=== PATIENT | female | born 1950 | race Caucasian/White ===

== ENCOUNTER 2019-11-05 16:27 | Emergency (ER) | payer MEDICARE, BC ==
[2019-11-05 18:03] LABS: APPEARANCE,URINE CLEAR; BILIRUBIN,URINE NEGATIVE (NEGATIVE); COLOR,URINE YELLOW; GLUCOSE, URINE NEGATIVE (NEGATIVE); KETONES,URINE NEGATIVE (NEGATIVE); LEUKOCYTE ESTERASE,URINE NEGATIVE (NEGATIVE); NITRITE,URINE NEGATIVE (NEGATIVE); PROTEIN,URINE 30 mg/dL (NEGATIVE); URINE SPECIFIC GRAVITY 1.006; UROBILINOGEN,URINE NEGATIVE mg/dL (<2.0)
[2019-11-05 18:03] LABS: ABSOLUTE BASOPHILS # (AUTO) 0.1 10^3/uL (0.0-0.2); ABSOLUTE EOSINOPHILS # (AUTO) 0.2 10^3/uL (0.0-0.6); ABSOLUTE LYMPHOCYTES (AUTO) 1.7 10^3/uL (0.5-4.7); ABSOLUTE MONOCYTES (AUTO) 0.9 10^3/uL (0.1-1.4); BASOPHILS % (AUTO) 0.4 % (0-2); EOSINOPHILS % (AUTO) 1.3 % (0-6); HEMATOCRIT 34.3 % (36.0-47.0); HEMOGLOBIN 11.5 g/dL (12.0-15.5); LYMPHOCYTES % (AUTO) 11.4 % (13-45); MEAN CORPUSCULAR HEMOGLOBIN 28.8 pg (27.0-33.4); MEAN CORPUSCULAR HGB CONC 33.5 g/dL (32.0-36.0); MEAN CORPUSCULAR VOLUME 86 fl (80-97); MONOCYTES % (AUTO) 6.1 % (3-13); PLATELET COUNT 255 10^3/uL (150-450); RED BLOOD COUNT 3.99 10^6/uL (3.72-5.28); RED CELL DISTRIBUTION WIDTH 15.3 % (11.5-14.0); SEGMENTED NEUTROPHILS % (AUTO) 80.8 % (42-78); TOTAL CELLS COUNTED % (AUTO) 100 %; WHITE BLOOD COUNT 14.9 10^3/uL (4.0-10.5)
[2019-11-05 18:33] LABS: ALBUMIN 3.8 g/dL (3.5-5.0); ALKALINE PHOSPHATASE 98 U/L (38-126); ANION GAP 12 (5-19); ASPARTATE AMINO TRANSFERASE 27 U/L (14-36); BILIRUBIN,DIRECT 0.3 mg/dL (0.0-0.4); BILIRUBIN,TOTAL 0.4 mg/dL (0.2-1.3); BLOOD UREA NITROGEN 17 mg/dL (7-20); CARBON DIOXIDE 26 mmol/L (22-30); CHLORIDE 97 mmol/L (98-107); CREATINE KINASE 31 U/L (30-135); GLUCOSE 225 mg/dL (75-110); POTASSIUM 4.1 mmol/L (3.6-5.0); TOTAL PROTEIN 6.7 g/dL (6.3-8.2)
[2019-11-05 18:43] LABS: CREATINE KINASE MB 1.26 ng/mL (<4.55)
[2019-11-05 18:47] LABS: TROPONIN I < 0.012 ng/mL
[2019-11-05] MEDS ORDERED: NORMAL SALINE 1000 ML 1,000 ML IV ONE (22:06)
--- NOTE | 2019-11-05 22:12 | ER Document Report ---
ED General - General Chief Complaint: Syncope Stated Complaint: GENERAL WEAKNESS Time Seen by Provider: 11/05/19 21:53 Primary Care Provider: OTF SERNA PA-C [Primary Care Provider] - Follow up as needed TRAVEL OUTSIDE OF THE [place] IN LAST 30 DAYS: No - HPI Notes: Ms. Gregory is a 69-year-old female presenting with a chief complaint of momentary syncopal episode at home. History is obtained from patient and from her sister who was with her at the time of her fainting episode. Patient had been weak in bed earlier in the day and when she tried to get up without assistance she started to fall to the floor. She was caught by her sister. No trauma sustained. Patient was unresponsive for about 15 seconds and then went to the bathroom and had a loose stool. She continues to feel weak. Patient smokes about 1 pack of cigarettes per day and has COPD. She does not regularly use steroids oxygen or nebulizer treatments. She has been coughing up some white sputum for the past several days. She denies fever chills. She denies hemoptysis. She denies chest pain. Says that she had had a couple of loose stools today not accompanied by nausea or vomiting. No melena or hematochezia. No hematemesis. No abdominal pain. Patient states that she was treated with oral Cipro about a month ago for urinary tract infection. Patient has been seen by mental health provider for several years and has been taking Vyvanse "as a stimulant for depression". Patient denies any drug abuse. Patient denies alcohol abuse. - Related Data Allergies/Adverse Reactions: nitrofurantoin [From Macrobid] Allergy (Verified 08/28/16 13:59) Past Medical History - General Information source: Patient, Relative - Social History Smoking Status: Current Every Day Smoker Frequency of alcohol use: None Drug Abuse: None Lives with: Family Family History: Reviewed & Not Pertinent, DM Patient has suicidal ideation: No Patient has homicidal ideation: No - Past Medical History Cardiac Medical History: Reports: Hx Congestive Heart Failure - By her report, Hx Hypertension Denies: Hx Coronary Artery Disease, Hx Heart Attack Pulmonary Medical History: Denies: Hx Asthma, Hx Bronchitis, Hx COPD, Hx Pneumonia Neurological Medical History: Denies: Hx Cerebrovascular Accident, Hx Seizures Endocrine Medical History: Reports: Hx Diabetes Mellitus Type 2 Musculoskeletal Medical History: Denies Hx Arthritis Psychiatric Medical History: Reports: Hx Depression Past Surgical History: Reports: Hx Abdominal Surgery, Hx Cholecystectomy, Hx Hysterectomy - Immunizations Hx Diphtheria, Pertussis, Tetanus Vaccination: Yes Review of Systems - Review of Systems Notes: Constitutional: Negative for fever. HENT: Negative for sore throat. Eyes: Negative for visual changes. Cardiovascular: Negative for chest pain. Respiratory: As per HPI. Gastrointestinal: As per HPI. Genitourinary: Negative for dysuria. Musculoskeletal: Negative for back pain. Skin: Negative for rash. Neurological: No focal weakness or sensory change. 10 point ROS negative except as marked above and in HPI. Physical Exam - Vital signs Vitals: Resp Pulse Ox 16 99 11/05/19 16:30 11/05/19 16:30 - Notes Notes: GENERAL: Elderly female appearing in no acute distress. SKIN: Diminished turgor no rashes. HEAD: Normocephalic atraumatic. EYES: PERRLA. EOMI. Conjunctivae and sclerae clear. EARS: CANALS AND TMS CLEAR. NOSE: CLEAR. MOUTH: Moist mucosa. Good dentition. No stridor or edema. No drooling. Throat: Clear. NECK: Supple. No masses or thyromegaly. No adenopathy. Carotids 2+ without bruits. No JVD. BACK: Symmetrical without tenderness. CHEST: Respirations unlabored. Rattling cough. Coarse rales and end expiratory wheezes bilaterally. HEART: Regular rhythm. No murmur gallop or rub. ABDOMEN: Soft nontender without masses, organomegaly or rebound. Bowel sounds normally active. No bruits. GENITALIA: Deferred. EXTREMITIES: No edema. No calf tenderness. Cap refill less than 1.5 seconds. Dorsalis pedis and posterior tibial pulses 3+ and symmetrical. NEUROLOGICAL: GCS 15. Alert and oriented x3. Fluent speech. Cranial nerves II through XII intact. Sensorimotor and cerebellar normal. Normal tone. PSYCHIATRIC: Appropriate affect. Course - Re-evaluation Re-evalutation: 11/05/19 22:14 Initial plan is to give this patient some additional IV hydration. We going to give her a nebulizer treatment at this time and also obtain a chest x-ray. First troponin is normal. Will get a second troponin. First EKG was unremarkable and she will get a second EKG. If patient has another stool going to get a C. difficile toxin assay. I have also requested a Gram stain and culture of the stool. Urinalysis is clear. White count peripherally is elevated to about 14.5 although she is afebrile here. Her chemistry profile was unremarkable. 11/05/19 22:52 Stool specimen has been obtained and submitted. Repeat EKG shows normal sinus rhythm with rate 89 and right axis deviation essentially unchanged from earlier tracing at 1636 hrs. 11/06/19 00:42 No pneumonia on chest x-ray. Flu screen negative. Troponin negative. D-dimer elevated 5.2. Plan at this time is to get a CTA of the chest to exclude PE. If this is negative I think this patient can go home with treatment of her acute bronchitis, increase oral fluids and instructions to stop smoking and follow-up with PMD outpatient. 11/06/19 03:[address] negative for PE. I think this lady got volume depleted as result of an acute bronchitis and had a momentary syncopal episode. She is been very stable here is had 2- troponins and no changes on her EKG. She is tolerating p.o. food and fluids without difficulty now and feels much better and appears stable for discharge. - Vital Signs Vital signs: Temp Pulse Resp BP Pulse Ox 97.5 F 92 20 142/58 H 98 11/05/19 16:44 11/05/19 22:31 11/06/19 00:01 11/06/19 00:01 11/06/19 00:01 - Laboratory Result Diagrams: 11/05/19 17:27 11/05/19 17:27 Laboratory results interpreted by me: 11/05/19 11/05/19 11/05/19 17:27 17:27 17:27 WBC 14.9 H Hgb 11.5 L Hct 34.3 L RDW 15.3 H Lymph % (Auto) 11.4 L Absolute Neuts (auto) 12.0 H Seg Neutrophils % 80.8 H D-Dimer Sodium 135.0 L Chloride 97 L Glucose 225 H POC Glucose NT-Pro-B Natriuret Pep 1080 H Urine Protein 11/05/19 11/05/19 11/05/19 17:27 17:35 19:23 WBC Hgb Hct RDW Lymph % (Auto) Absolute Neuts (auto) Seg Neutrophils % D-Dimer 5.93 H Sodium Chloride Glucose POC Glucose 204 H NT-Pro-B Natriuret Pep Urine Protein 30 H - Diagnostic Test Radiology reviewed: Reports reviewed Radiology results interpreted by me: 11/06/19 03:12 Chest x-ray showed no infiltrates per radiologist. CTA chest shows no pulmonary emboli. Discharge - Discharge Clinical Impression: Syncope, Cigarette smoker Acute bronchitis Qualifiers: Bronchitis organism: unspecified organism Qualified Code(s): J20.9 - Acute bronchitis, unspecified COPD (chronic obstructive pulmonary disease) Qualifiers: COPD type: COPD with acute exacerbation Qualified Code(s): J44.1 - Chronic o bstructive pulmonary disease with (acute) exacerbation Condition: Stable Disposition: HOME, SELF-CARE Additional Instructions: Bronchitis You have acute bronchitis. This disease is an infection or inflammation of the air passageways in your lungs. Symptoms usually include cough, low grade fever, shortness of breath, and wheezing. The cough usually persists for a couple of weeks. Most cases of bronchitis get better without antibiotics. We prescribe antibiotics when we believe bacteria are damaging your airways, or if there's high risk the bronchitis will worsen into pneumonia. Increase your fluid intake. A cool mist humidifier may make your lungs more comfortable. An expectorant (cough medicine that loosens phlegm) can help. If you smoke, STOP!!! Recovery from bronchitis can be somewhat slow, but you should see improvement within a day or two. Repeated episodes of bronchitis may result in lung damage -- for example, chronic bronchitis, recurrent pneumonias, or emphysema. Call the doctor if you develop increasing fever, shortness of breath, chest pain, bloody sputum, or otherwise worsen. If you have not improved at all after several days, contact the physician. Return here as needed for new or worsening symptoms: Recurrent episodes of fainting Increasing shortness of breath Pain that is worsening or unimproved Uncontrolled vomiting High fever or shaking chills Overall worsening Prescriptions: Azithromycin 250 mg PO ASDIR PRN #6 tablet PRN Reason: Prednisone [Deltasone 20 mg Tablet] 2 tab PO DAILY 5 Days tablet Forms: Smoking Cessation Education Referrals: OTF SERNA PA-C [Primary Care Provider] - Follow up as needed
--- NOTE | 2019-11-05 22:52 | RADIOLOGY REPORT (SQ) ---
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 COMPARISON: None. FINDINGS: Normal heart size without pulmonary edema. No focal consolidation is identified. No pleural effusions or pneumothorax. No acute bony findings are seen. IMPRESSION: No evidence of acute cardiopulmonary disease.
[2019-11-05 23:19] LABS: A TYPE INFLUENZA AG NEGATIVE (NEGATIVE); B INFLUENZA AG NEGATIVE (NEGATIVE)
--- NOTE | 2019-11-06 02:32 | RADIOLOGY REPORT (SQ) ---
CT CHEST ANGIOGRAPHY WITHOUT THEN WITH IV CONTRAST EXAM DATE: 11/06/2019 12:41 AM [employer] CONSULTANT HISTORY: Shortness of breath. COMPARISON: None. TECHNIQUE: CT angiogram of the chest with IV contrast. 3-D MIP images were obtained in coronal and sagittal reconstructions. This exam was performed according to our departmental dose-optimization program, which includes automated exposure control, adjustment of the mA and/or kV according to patient size and/or use of iterative reconstruction technique. FINDINGS: No filling defects are identified in the pulmonary trunk, main left and right pulmonary arteries, or the segmental branches. The thyroid gland is normal. No mediastinal or hilar adenopathy. The heart size is normal without pericardial effusion. The thoracic aorta is normal caliber. No consolidation, pleural effusion, or pneumothorax is identified. Again seen are multiple variably sized cysts throughout both lungs, nonspecific. The visualized upper abdomen demonstrates no acute findings. No acute osseous findings are seen. IMPRESSION: No acute pulmonary embolism.
[2019-11-06 03:56] VITALS: BP 154/59
--- NOTE | 2019-11-06 23:28 | EKG REPORT ---
SEVERITY:- OTHERWISE NORMAL ECG - SINUS RHYTHM RIGHT AXIS DEVIATION MINIMAL ST DEPRESSION, INFERIOR LEADS : Confirmed by: Mavis Ortega 06-Nov-2019 23:27:13
--- NOTE | 2019-11-06 23:28 | EKG REPORT ---
SEVERITY:- BORDERLINE ECG - SINUS RHYTHM RIGHT AXIS DEVIATION BORDERLINE PROLONGED QT INTERVAL ST SEG DEPRESSION, INF AND LATERAL CHEST LEADS : Confirmed by: Mavis Ortega 06-Nov-2019 23:28:12
== END 2019-11-06 04:21 | disposition home or self-care (01) ==
LOC: ER 16:27
DX: R55 Syncope and collapse (principal); J44.0 Chronic obstructive pulmonary disease with (acute) lower respiratory infection; J20.9 Acute bronchitis, unspecified; J44.1 Chronic obstructive pulmonary disease with (acute) exacerbation; F17.210 Nicotine dependence, cigarettes, uncomplicated; R53.1 Weakness; R05 Cough; R19.4 Change in bowel habit; R79.89 Other specified abnormal findings of blood chemistry; I10 Essential (primary) hypertension; E11.9 Type 2 diabetes mellitus without complications; F32.9 Major depressive disorder, single episode, unspecified; Z79.899 Other long term (current) drug therapy; Z88.1 Allergy status to other antibiotic agents
CPT/HCPCS: 93005; 99285; 96360; 96361; 36415; 82553; 82962; 82550; 85025; 80053; 81001; 84484; 85379; 87804; 83880; 71046; 71275; 93010; J7030